=== PATIENT | male | born 2000 | race Caucasian/White ===

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

== ENCOUNTER 2022-01-02 19:23 | Emergency (ER) | payer BC ==
[~2022-01-02] VITALS: Ht 177.8 cm; Wt 95.5 kg
[2022-01-02] MEDS ORDERED: TAMIFLU 75MG75 MG PO (21:23)
[2022-01-02 21:55] VITALS: BP 120/86; PULSE 88; TEMP 99.8
== END 2022-01-02 22:00 | disposition home or self-care (01) ==
LOC: COL.ER 19:23
DX: J10.1 Influenza due to other identified influenza virus with other respiratory manifestations (principal); Z20.822 Contact with and (suspected) exposure to COVID-19